=== PATIENT | male | born 1935 | race Caucasian/White ===

== ENCOUNTER 2016-06-14 12:50 | Emergency (ER) | payer MEDICARE, OTHER ==
[2016-06-14 13:10] LABS: BASOPHILS % (AUTO) 1 % (0-3); EOSINOPHILS % (AUTO) 2 % (0-9); HEMATOCRIT 38 % (39-53); MEAN CORPUSCULAR HGB CONC 34.7 gm/dl (32.0-36.0); MEAN CORPUSCULAR VOLUME 88 fL (80-100); MONOCYTES % (AUTO) 7.2 % (0-12); NEUTROPHILS % (AUTO) 51.5 % (37-80)
[2016-06-14 13:21] LABS: ALBUMIN 3.7 gm/dl (3.4-5.0); ALT 19 IU/L (14-63); CALCIUM 8.6 mg/dl (8.5-10.1); GLOM FILT RATE 69 mL/min (>60); POTASSIUM 3.9 mMol/L (3.5-5.1); SODIUM 138 mMol/L (136-145)
[2016-06-14 13:27] VITALS: TEMP 98.8
[2016-06-14 16:11] VITALS: BP 134/55; PULSE 72; RESP 20; O2SAT 99
== END 2016-06-14 14:00 | disposition home or self-care (01) | DRG 312 ==
LOC: ED 12:50
DX: R55 Syncope and collapse (principal); R10.9 Unspecified abdominal pain
CPT/HCPCS: 36415; 71010; 80053; 82550; 84484; 85025; 85610; 85730; 93005; 99283; 99284

== ENCOUNTER 2018-11-23 20:11 | Emergency (ER) | payer MEDICARE, OTHER ==
[2018-11-23] MEDS ORDERED: NITROGLYCERIN 0.4 MG TAB SL ONE (20:21)
[2018-11-23] MEDS ORDERED: SODIUM CHLORIDE 0.9% FLUSH 10 ML SOL IV PRN (20:21)
[2018-11-23] MEDS ORDERED: MORPHINE SULFATE 10 MG/ML SOL IV PRN (20:21)
[2018-11-23] MEDS ORDERED: ASPIRIN 81 MG CHEWABLE CTB PO STA (20:21)
[2018-11-23] MEDS ORDERED: NITROGLYCERIN 0.4 MG TAB SL PRN (20:21)
[2018-11-23] MEDS ORDERED: ASPIRIN 81 MG CHEWABLE CTB ONE (20:29)
[2018-11-23] MEDS ORDERED: SODIUM CHLORIDE 0.9% 1000ML 1,000 ML IV SCH (20:30)
[2018-11-23 20:42] LABS: INR 1.01 (0.87-1.13)
[2018-11-23 20:43] LABS: BASOPHILS % (AUTO) 1 % (0-3); EOSINOPHILS % (AUTO) 4 % (0-9); HEMATOCRIT 40 % (39-53); LYMPHOCYTES % (AUTO) 38.4 % (10-50); MEAN CORPUSCULAR HEMOGLOBIN 29.6 pg (27.0-32.0); MEAN CORPUSCULAR HGB CONC 32.7 gm/dl (32.0-36.0); MEAN CORPUSCULAR VOLUME 90 fL (80-100); MONOCYTES % (AUTO) 9.4 % (0-12); NEUTROPHILS % (AUTO) 47.7 % (37-80)
[2018-11-23 20:48] LABS: ALBUMIN 3.5 gm/dl (3.4-5.0); ALKALINE PHOSPHATASE 70 IU/L (46-116); ALT 17 IU/L (14-63); AST 11 IU/L (15-37); BILIRUBIN,TOTAL 0.3 mg/dl (0.2-1.0); BLOOD UREA NITROGEN 18 mg/dl (7-18); CALCIUM 8.6 mg/dl (8.5-10.1); CARBON DIOXIDE 28.1 mEq/L (21-32); CHLORIDE 104 mMol/L (98-107); CREATININE 0.91 mg/dl (0.80-1.30); GLUCOSE 111 mg/dl (74-106); TOTAL PROTEIN 7.1 gm/dl (6.4-8.2); TROP I < 0.017 ng/ml (0.000-0.056)
[2018-11-23 21:58] LABS: APPEARANCE,URINE Clear; BILIRUBIN,URINE NEGATIVE (NEGATIVE); COLOR,URINE Yellow; GLUCOSE, URINE (UA) NEGATIVE (NEGATIVE); KETONES,URINE NEGATIVE (NEGATIVE); LEUKOCYTE ESTERASE ,URINE NEGATIVE (NEGATIVE); NITRATE,URINE NEGATIVE (NEGATIVE); OCCULT BLOOD,URINE TRACE INTACT (NEG-TRACE); PH,URINE 6.5; UROBILINOGEN,URINE 0.2 (0.2-1.0 EU)
[2018-11-23 22:05] VITALS: TEMP 97.9
[2018-11-23 22:17] LABS: BACTERIA NEGATIVE (< 1+); CRYSTALS NEGATIVE (0-3 AVE/HPF); EPITHELIAL CELLS NEGATIVE (SQUAMOUS); RBC,URINE 0-1 (0-3AV/HPF); WBC,URINE NEGATIVE (0-5AV/HPF)
[2018-11-24 00:24] VITALS: BP 153/80; PULSE 68; RESP 19; O2SAT 97
== END 2018-11-24 00:04 | disposition home or self-care (01) | DRG 313 ==
LOC: ED 20:11
DX: R07.9 Chest pain, unspecified (principal); R06.00 Dyspnea, unspecified; Z79.899 Other long term (current) drug therapy
CPT/HCPCS: 71045; 80053; 81001; 83880; 84484; 85025; 85610; 85730; 93005; 96365; 96366; 99284; 99285; A9270-GY

== ENCOUNTER 2018-12-28 00:02 | Emergency (ER) | payer MEDICARE, OTHER ==
[2018-12-28 00:36] VITALS: TEMP 97.8
[2018-12-28 00:50] LABS: BASOPHILS % (AUTO) 1 % (0-3); EOSINOPHILS % (AUTO) 3 % (0-9); HEMATOCRIT 41 % (39-53); HEMOGLOBIN 13.4 gm/dl (13.5-17.7); LYMPHOCYTES % (AUTO) 37.1 % (10-50); MEAN CORPUSCULAR HEMOGLOBIN 30.3 pg (27.0-32.0); MEAN CORPUSCULAR VOLUME 92 fL (80-100); MONOCYTES % (AUTO) 9.8 % (0-12); NEUTROPHILS % (AUTO) 49.5 % (37-80)
[2018-12-28 00:52] LABS: ALBUMIN 3.6 gm/dl (3.4-5.0); BILIRUBIN,TOTAL 0.3 mg/dl (0.2-1.0); CALCIUM 8.6 mg/dl (8.5-10.1); CARBON DIOXIDE 29.8 mEq/L (21-32); CREATININE 1.11 mg/dl (0.80-1.30); TOTAL PROTEIN 7.4 gm/dl (6.4-8.2); TROP I 0.14 ng/ml (0.000-0.056)
[2018-12-28] MEDS ORDERED: ASPIRIN 81 MG CHEWABLE CTB PO ONE (01:00)
[2018-12-28] MEDS ORDERED: ASPIRIN 81 MG CHEWABLE CTB ONE (01:04)
[2018-12-28] MEDS ORDERED: HEPARIN SODIUM 5000 U/ML SOL IV ONE (01:18)
[2018-12-28] MEDS ORDERED: HEPARIN SODIUM 5000 U/ML SOL ONE (01:24)
[2018-12-28] MEDS ORDERED: METOPROLOL TARTRATE 5 MG/5 ML SOL IV ONE ×2 (01:25)
[2018-12-28 01:44] VITALS: RESP 16
[2018-12-28 02:09] VITALS: BP 161/97; PULSE 88; O2SAT 98
== END 2018-12-28 01:58 | disposition short-term general hospital (02) | DRG 282 ==
LOC: ED 00:02
DX: I21.4 Non-ST elevation (NSTEMI) myocardial infarction (principal); R05 Cough; R07.89 Other chest pain; R06.02 Shortness of breath
CPT/HCPCS: 36415; 71045; 80053; 84484; 85025; 93005; 96374; 96375; 99291; J1644; J3490

== ENCOUNTER 2019-01-04 15:56 | Inpatient (IN) | payer MEDICARE, OTHER ==
[2019-01-04] MEDS ORDERED: OXYCODONE HYDROCHLORIDE 5 MG TAB PO PRN (20:45)
[2019-01-04] MEDS: SIMVASTATIN 20 MG TAB PO SCH (21:26)
[2019-01-04] MEDS: FLUTICASONE PROPIONATE INH SCH (21:26)
[2019-01-04] MEDS: METOPROLOL TARTRATE 25 MG TAB PO SCH (21:26)
[2019-01-04] MEDS: AMIODARONE 200 MG TAB PO SCH (21:26)
[2019-01-05] MEDS: ACETAMINOPHEN 500 MG 500 MG TAB PO PRN ×2 (06:15→20:12)
[2019-01-05 07:32] LABS: INR 1.99 (0.87-1.13)
[2019-01-05] MEDS ORDERED: [UNRECOGNIZED DRUG - OTHER] PO SCH (09:00)
[2019-01-05] MEDS: ASPIRIN EC 81 MG PO SCH (09:34)
[2019-01-05] MEDS: METOPROLOL TARTRATE 25 MG TAB PO SCH ×2 (09:34→20:10)
[2019-01-05] MEDS: AMIODARONE 200 MG TAB PO SCH ×4 (09:34→20:10)
[2019-01-05] MEDS: FLUTICASONE PROPIONATE INH SCH (09:35)
[2019-01-05] MEDS: FERROUS GLUCONATE 324 MG TABLET PO SCH (11:16)
[2019-01-05] MEDS: WARFARIN SODIUM 5 MG TAB PO SCH (17:15)
[2019-01-05] MEDS ORDERED: WARFARIN SODIUM 5 MG TAB PO SCH (18:00)
[2019-01-05] MEDS: FLUTICASONE PROPIONATE SPR NAS SCH (20:09)
[2019-01-05] MEDS: SIMVASTATIN 20 MG TAB PO SCH (20:10)
[2019-01-05] MEDS: FAMOTIDINE 20 MG TAB PO SCH (20:10)
[2019-01-05] MEDS: SENNOSIDES A AND B 8.6 MG TAB PO PRN (20:11)
[2019-01-05] MEDS ORDERED: RANITIDINE HCL 150 MG TAB PO SCH (21:00)
[2019-01-06] MEDS: FERROUS GLUCONATE 324 MG TABLET PO SCH (08:19)
[2019-01-06] MEDS: METOPROLOL TARTRATE 25 MG TAB PO SCH ×2 (08:19→20:08)
[2019-01-06] MEDS: ASPIRIN EC 81 MG PO SCH (08:19)
[2019-01-06] MEDS: FLUTICASONE PROPIONATE SPR NAS SCH ×2 (08:19→20:08)
[2019-01-06] MEDS: AMIODARONE 200 MG TAB PO SCH ×4 (08:20→20:08)
[2019-01-06] MEDS: ACETAMINOPHEN 500 MG 500 MG TAB PO PRN ×2 (08:21→19:28)
[2019-01-06] MEDS: WARFARIN SODIUM 5 MG TAB PO SCH (18:02)
[2019-01-06] MEDS: MAGNESIUM HYDROXIDE 30 ML SUS PO PRN (19:27)
[2019-01-06] MEDS: SENNOSIDES A AND B 8.6 MG TAB PO PRN (19:27)
[2019-01-06] MEDS: SIMVASTATIN 20 MG TAB PO SCH (20:08)
[2019-01-06] MEDS: FAMOTIDINE 20 MG TAB PO SCH (20:09)
[2019-01-07] MEDS: ACETAMINOPHEN 500 MG 500 MG TAB PO PRN ×2 (07:25→20:42)
[2019-01-07] MEDS: AMIODARONE 200 MG TAB PO SCH ×4 (08:59→20:42)
[2019-01-07] MEDS: ASPIRIN EC 81 MG PO SCH (08:59)
[2019-01-07] MEDS: METOPROLOL TARTRATE 25 MG TAB PO SCH ×2 (08:59→20:43)
[2019-01-07] MEDS: FERROUS GLUCONATE 324 MG TABLET PO SCH (08:59)
[2019-01-07] MEDS: FLUTICASONE PROPIONATE SPR NAS SCH ×2 (09:00→20:42)
[2019-01-07] MEDS: WARFARIN SODIUM 2.5 MG TAB PO SCH (17:58)
[2019-01-07] MEDS: SIMVASTATIN 20 MG TAB PO SCH (20:43)
[2019-01-07] MEDS: FAMOTIDINE 20 MG TAB PO SCH (20:43)
[2019-01-08] MEDS: ACETAMINOPHEN 500 MG 500 MG TAB PO PRN ×2 (07:08→20:27)
[2019-01-08 08:27] VITALS: RESP 18
[2019-01-08] MEDS: METOPROLOL TARTRATE 25 MG TAB PO SCH ×2 (08:28→20:27)
[2019-01-08] MEDS: FERROUS GLUCONATE 324 MG TABLET PO SCH (08:28)
[2019-01-08] MEDS: FLUTICASONE PROPIONATE SPR NAS SCH ×2 (08:28→20:27)
[2019-01-08] MEDS: ASPIRIN EC 81 MG PO SCH (08:28)
[2019-01-08] MEDS: AMIODARONE 200 MG TAB PO SCH ×4 (08:29→20:27)
[2019-01-08] MEDS: WARFARIN SODIUM 2.5 MG TAB PO SCH (18:00)
[2019-01-08] MEDS: FAMOTIDINE 20 MG TAB PO SCH (20:27)
[2019-01-08] MEDS: SIMVASTATIN 20 MG TAB PO SCH (20:27)
[2019-01-08] MEDS: MAGNESIUM HYDROXIDE 30 ML SUS PO PRN (21:31)
[2019-01-09 07:20] LABS: BASOPHILS % (AUTO) 1 % (0-3); EOSINOPHILS % (AUTO) 3 % (0-9); HEMATOCRIT 28 % (39-53); HEMOGLOBIN 9.2 gm/dl (13.5-17.7); LYMPHOCYTES % (AUTO) 15.8 % (10-50); MEAN CORPUSCULAR HEMOGLOBIN 30.9 pg (27.0-32.0); MEAN CORPUSCULAR HGB CONC 33.3 gm/dl (32.0-36.0); MEAN CORPUSCULAR VOLUME 93 fL (80-100); NEUTROPHILS % (AUTO) 73.6 % (37-80)
[2019-01-09 08:01] LABS: INR 8.03 (0.87-1.13)
[2019-01-09] MEDS ORDERED: PHYTONADIONE 10 MG/ML SOL PO ONE (08:31)
[2019-01-09] MEDS: ASPIRIN EC 81 MG PO SCH (09:04)
[2019-01-09] MEDS: FLUTICASONE PROPIONATE SPR NAS SCH (09:04)
[2019-01-09] MEDS: FERROUS GLUCONATE 324 MG TABLET PO SCH (09:04)
[2019-01-09] MEDS: AMIODARONE 200 MG TAB PO SCH (09:04)
[2019-01-09] MEDS: METOPROLOL TARTRATE 25 MG TAB PO SCH (09:04)
[2019-01-09] MEDS: ACETAMINOPHEN 500 MG 500 MG TAB PO PRN (09:11)
[2019-01-09 09:13] VITALS: BP 123/65; PULSE 76; TEMP 97.6; O2SAT 96
== END 2019-01-09 12:10 | disposition home or self-care (01) | DRG 946 ==
LOC: ACUTE CARE 19:35
PROVIDERS: ADMIT Family Medicine; ATTEND Family Medicine
PROC: F01ZBZZ Bed Mobility Assessment (ICD-10-PCS; principal; 2019-01-05)
PROC: F01ZCZZ Transfer Assessment (ICD-10-PCS; 2019-01-05)
PROC: F01K0ZZ Muscle Performance Assessment of Musculoskeletal System - Upper Back / Upper Extremity (ICD-10-PCS; 2019-01-05)
DX: Z95.1 Presence of aortocoronary bypass graft (principal); Z98.890 Other specified postprocedural states; I48.91 Unspecified atrial fibrillation; R13.10 Dysphagia, unspecified
CPT/HCPCS: 36415; 85018; 85025; 85610; J3430; A9270-GY